=== PATIENT | female | born 1950 | race Caucasian/White ===

== ENCOUNTER 2017-11-06 17:39 | Emergency (ER) | payer MEDICARE, OTHER ==
[2017-11-06 18:34] LABS: ADD UMIC YES; UR ASCORBIC ACID NEGATIVE (NEGATIVE); UR BILIRUBIN (Dip) NEGATIVE (NEGATIVE); UR BLOOD (Dip) 1+ mg/dL (NEGATIVE); UR CLARITY CLEAR (CLEAR); UR COLOR AMBER (YELLOW); UR GLUCOSE (Dip) NEGATIVE (NEGATIVE); UR KETONES (Dip) NEGATIVE (NEGATIVE); UR LEUKOCYTE ESTERASE (Dip) 3+ Leu/ul (NEGATIVE); UR NITRITE (Dip) POSITIVE (NEGATIVE); UR RBC 0 /HPF (0-5); UR SPECIFIC GRAVITY (Dip) 1.001 (1.003-1.030); UR TOTAL PROTEIN (Dip) NEGATIVE (NEGATIVE); UR UROBILINOGEN (Dip) NEGATIVE (NEGATIVE); UR WBC 15 /HPF (0-5)
[2017-11-06] MEDS: ACETAMINOPHEN 325 MG TAB PO (18:47)
[2017-11-06] MEDS: CEPHALEXIN 500 MG CAP PO (19:23)
[2017-11-06] MEDS: PHENAZOPYRIDINE 100 MG TAB PO (19:24)
== END 2017-11-06 19:30 | disposition home or self-care (01) ==
LOC: FTE 17:39
DX: N30.00 Acute cystitis without hematuria (principal); I10 Essential (primary) hypertension
CPT/HCPCS: 81001; 99283